=== PATIENT | female | born 1985 | race Caucasian/White ===

== ENCOUNTER → 2019-10-05 11:09 | Outpatient (BNVA) | payer MEDICAID, SELFPAY | PROVIDERS: Visit Provider Nurse Practitioner Family | DX: I10 Essential (primary) hypertension (principal); E55.9 Vitamin D deficiency, unspecified; F32.9 Major depressive disorder, single episode, unspecified; F32.1 Major depressive disorder, single episode, moderate; F41.9 Anxiety disorder, unspecified; Z79.899 Other long term (current) drug therapy | CPT/HCPCS: 80053; 80061; 81001; 82306; 83036; 84443; 85025 ==

== ENCOUNTER 2019-12-17 19:29 | Emergency (ER) | payer MEDICAID, SELFPAY ==
[2019-12-17 19:37] VITALS: BP 175/108; PULSE 106; RESP 17; TEMP 36.7; O2SAT 99; BMI 37.2
--- NOTE | 2019-12-17 19:54 | ED_ITS ---
HPI - General Adult General: Chief complaint: General Medical Stated complaint: high bp Time Seen by Provider: 12/17/19 19:36 History of Present Illness: HPI narrative: Patient is a 34-year-old female comes to the ED with elevated blood pressure, left-sided facial numbness/tingling and chest heaviness. Past medical history of hypertension and anxiety. Patient says this morning she woke up with some left-sided facial numbness . She went to [facility] urgent care and was diagnosed with Turner's palsy and put on a prescription of prednisone. No head CT was performed at [facility]. She states she is here in the ED now because she has had some elevated blood pressures at home and chest heaviness. Chest heaviness just started while at rest. She does also endorse some tingling to both right and left hands. She does endorse feeling anxious and noticed that she started getting more worried about her facial numbness anxiety increased and chest heaviness started. Associated symptoms: Reports chest pain (chest heaviness); Deny dyspnea, headache(s), nausea, rash, palpitations or vomiting Review of Systems Const: Denies: fever(s), chills or fatigue Eyes: Denies: change in vision or eye discomfort ENMT: Denies: throat pain, odynophagia, nasal discharge or nasal congestion Card: Reports: chest pain (chest heaviness); Denies: palpitations, edema, swelling of feet/ankles, dyspnea on exertion or orthopnea Resp: Denies: dyspnea, productive cough or non-productive cough GI: Denies: abdominal pain, nausea, vomiting, diarrhea, constipation or hematochezia : Denies: flank pain, dysuria or hematuria Musc: Denies: neck pain, back pain or extremity swelling Skin/Breast: Denies: rash or new lesions Neuro: Reports: sensory changes (numbness left side of face); Denies: headache(s), numbness in extremities or weakness in extremities Psych: Reports: anxiety PFSH ED PFSH: Medical History Anxiety Hypertension Otitis media Sleep disorder Vitamin D deficiency Surgical History S/P appendectomy S/P times 2 S/P cholecystectomy S/P tonsillectomy and adenoidectomy Female Reproductive History: Date of last menstrual period: 12/17/19 Physical Exam Const: COMMON NORMALS: no acute distress, patient oriented x3 and alert GENERAL APPEARANCE: cooperative, comfortable and anxious HENMT: COMMON NORMALS: normocephalic HEAD & SCALP: normocephalic MOUTH: Normal oral and palatal mucosa present THROAT: posterior oropharynx normal and uvula midline Eye: COMMON NORMALS: Equal, round and reactive pupils present, EOMs intact bilaterally and conjunctivae normal CONJUNCTIVA: Yes conjunctivae normal PUPIL: Yes Equal, round and reactive pupils present Neck/C-Spine: COMMON NORMALS: supple GENERAL: Yes normal visual inspection Resp: COMMON NORMALS: normal respiratory effort, No retractions, No use of accessory muscles and clear to auscultation bilaterally AUSCULTATION: clear to auscultation bilaterally Cardio: COMMON NORMALS: regular rate, regular rhythm, S1 normal heart sound present, S2 normal heart sound present, No gallops present (Cardio), No clicks present (Cardio), No murmurs present (Cardio) and Peripheral pulses 2+ throughout RATE: regular rate RHYTHM: regular rhythm HEART SOUNDS: S1 normal heart sound present and S2 normal heart sound present PERIPHERAL PULSES: Peripheral pulses 2+ throughout GI: COMMON NORMALS: Normal to inspection, nondistended, normoactive bowel sounds present, Soft to palpation, non-tender and no masses PALPATION: Yes Soft to palpation : COMMON NORMALS: Yes no CVA tenderness BLADDER/KIDNEY EXAM: Yes no CVA tenderness Back/Pelvis: COMMON NORMALS: no CVA tenderness Extremity: COMMON NORMALS: normal to inspection and no pedal edema Neuro: COMMON NORMALS: patient oriented x3, moves all extremities and no focal motor deficits SENSORIUM/ORIENTATION: Yes alert CRANIAL NERVES: Yes CN normal except as noted and Yes CN V (trigeminal) CN V laterality: left CN V left: all branch sensations abnormal (change in sensation with soft touch) COORDINATION/BALANCE: [id number] test normal SENSORY EXAM: Yes extremities (intact) MOTOR EXAM: 5/5 motor strength present throughout COORDINATION: [id number] test normal Psych: MOOD & AFFECT: Yes anxious Skin: COMMON NORMALS: no rashes or lesions noted GENERAL SKIN EXAM: no rashes or lesions noted and dry skin Course Vital Signs: Vital signs: Vital Signs Temperature 98.0 F 08/02/20 19:37 Pulse Rate 81 12/17/19 21:38 Respiratory Rate 16 12/17/19 21:38 Blood Pressure 149/99 12/17/19 21:38 Pulse Oximetry 97 12/17/19 21:38 MDM - General Adult MDM Narrative: Medical decision making narrative: Patient is a 34-year-old female who comes to the ED with left sided facial numbness elevated blood pressure and chest heaviness. Patient has a past medical history of anxiety and hypertension. Patient was seen at [facility] earlier today after waking up with facial numbness and diagnosed with Turner's palsy and given a prescription for prednisone. No head CT was performed there at [facility]. Neuro exam was normal except for change in sensation to soft touch on the left side of face. The rest of the physical exam was normal and unremarkable. CBC, CMP and UA were unremarkable. EKG showed normal sinus rhythm with negative troponin. hCG negative. Chest x-ray showed no acute findings pending final radiology report. CT of the head showed no acute findings ruling out stroke. Patient's chest heaviness and blood pressure improved while here on the unit after getting dose of Ativan. Patient was diagnosed with acute anxiety and hypertensive urgency. Patient told to continue taking prednisone to treat Turner's palsy. return to ED precautions given. Follow-up with PCP in 5 days for reevaluation. Patient understood and agreed with plan. Lab Data: Attestation: I reviewed the patient's lab results. Labs: Lab Results 12/17/19 12/17/19 12/17/19 Range/Units 20:00 20:00 20:00 WBC 8.4 (4.0-10.0) 10^3/ uL RBC 4.82 (4.1-5.3) 10^6/u L Hgb 14.5 (11.5-15.3) g/dL Hct 44.6 (37.0-47.0) % MCV 92.5 (81-99) fL MCH 30.1 (28.0-34.0) pg MCHC 32.5 (30.0-36.0) g/dL RDW 12.2 (12.1-15.1) % Plt Count 327 (130-400) 10^3/c mm MPV 10.7 H (7.4-10.4) fL Neut % (Auto) 85.3 % Lymph % (Auto) 12.2 % [place] % (Auto) 2.0 % Eos % (Auto) 0.1 % Baso % (Auto) 0.2 % Neut # (Auto) 7.16 (1.8-7.7) 10^3/u L Lymph # (Auto) 1.0 (0.8-4.8) 10^3/u L [place] # (Auto) 0.2 (0.2-0.9) 10^3/u L Eos # (Auto) 0.0 (0.0-0.8) 10^3/u L Baso # (Auto) 0.0 (0.0-0.1) 10^3/u L Nucleated RBC % (a uto) 0 % Nucleated RBCs # 0.0 /100WBC Sodium 139 (136-145) mmol/L Potassium 4.2 (3.5-5.1) mmol/L Chloride 106 (98-107) mmol/L Carbon Dioxide 22 (22-29) mmol/L Anion Gap 15.2 (5-19) BUN 10 (6-20) mg/dL Creatinine 0.7 (0.5-0.9) mg/dL GFR Calculation 96.4 (90-130) mL/min Glucose 160 H (65-115) mg/dL Calculated Osmolal ity 287 (285-295) mOsm/k g Calcium 9.0 (8.5-10.5) mg/dL Total Bilirubin 0.2 (0.15-1.2) mg/dL AST 27 (0-32) U/L ALT 35 H (0-33) U/L Alkaline Phosphata se 74 (35-105) IU/L Troponin T Baselin e 6 (0-10) ng/L Total Protein 7.3 (6.6-8.7) g/dL Albumin 4.4 (3.5-5.2) g/dL Globulin 2.9 (1.3-4.6) g/dL HCG, Qual (Negative) Urine Color (Yellow) Urine Appearance (CLEAR) Urine pH (5-7) Ur Specific Gravit y (1.005-1.030) Urine Protein (Negative) Urine Glucose (UA) (Normal) Urine Ketones (Negative) Urine Blood (Negative) Urine Nitrate (Negative) Urine Bilirubin (NEGATIVE) Prot Sulfosalicyli c Acd (Negative) Urine Urobilinogen (Negative) mg/dL Ur Leukocyte Rae ase (Negative) Urine RBC (0-2) /hpf Urine WBC (0-5) /hpf Ur Squamous Epith Cells (0-5) Amorphous Sediment Urine Bacteria (NONE) Urine Mucus 12/17/19 12/17/19 Range/Units 20:00 20:08 WBC (4.0-10.0) 10^3/ uL RBC (4.1-5.3) 10^6/u L Hgb (11.5-15.3) g/dL Hct (37.0-47.0) % MCV (81-99) fL MCH (28.0-34.0) pg MCHC (30.0-36.0) g/dL RDW (12.1-15.1) % Plt Count (130-400) 10^3/c mm MPV (7.4-10.4) fL Neut % (Auto) % Lymph % (Auto) % [place] % (Auto) % Eos % (Auto) % Baso % (Auto) % Neut # (Auto) (1.8-7.7) 10^3/u L Lymph # (Auto) (0.8-4.8) 10^3/u L [place] # (Auto) (0.2-0.9) 10^3/u L Eos # (Auto) (0.0-0.8) 10^3/u L Baso # (Auto) (0.0-0.1) 10^3/u L Nucleated RBC % (a uto) % Nucleated RBCs # /100WBC Sodium (136-145) mmol/L Potassium (3.5-5.1) mmol/L Chloride (98-107) mmol/L Carbon Dioxide (22-29) mmol/L Anion Gap (5-19) BUN (6-20) mg/dL Creatinine (0.5-0.9) mg/dL GFR Calculation (90-130) mL/min Glucose (65-115) mg/dL Calculated Osmolal ity (285-295) mOsm/k g Calcium (8.5-10.5) mg/dL Total Bilirubin (0.15-1.2) mg/dL AST (0-32) U/L ALT (0-33) U/L Alkaline Phosphata se (35-105) IU/L Troponin T Baselin e (0-10) ng/L Total Protein (6.6-8.7) g/dL Albumin (3.5-5.2) g/dL Globulin (1.3-4.6) g/dL HCG, Qual Negative (Negative) Urine Color Yellow (Yellow) Urine Appearance Sl hazy (CLEAR) Urine pH 8 H (5-7) Ur Specific Gravit y 1.010 (1.005-1.030) Urine Protein Neg (Negative) Urine Glucose (UA) 4+ H (Normal) Urine Ketones Negative (Negative) Urine Blood Neg (Negative) Urine Nitrate Negative (Negative) Urine Bilirubin Neg (NEGATIVE) Prot Sulfosalicyli c Acd Negative (Negative) Urine Urobilinogen Norm (Negative) mg/dL Ur Leukocyte Rae ase Negative (Negative) Urine RBC Rare (0-2) /hpf Urine WBC 0-4 H (0-5) /hpf Ur Squamous Epith Cells 0-4 H (0-5) Amorphous Sediment 2+ Urine Bacteria Trace (NONE) Urine Mucus Trace Imaging Data^: CT Head: Attestation: I personally reviewed and interpreted this imaging study as follows: Radiologist's impression: [place] [address] CT Scan Report Signed Patient: Kanwal Booth Unit #: [id number] : 1985 Acct#:OV [id number] Age/Sex: 34 / F ADM Date: 12/17/19 Loc: ER Room/Bed: Attending Dr: Ordering Provider/Ordering MD: Can Spears Date of Service: 12/17/19 Procedure(s): CT head wo con* [id number] Accession Number(s): [id number] Report Number: [id number] PROCEDURE INFORMATION: Exam: CT Head Without Contrast Exam date and time: 12/17/2019 8:12 PM Age: 34 years old Clinical indication: Numbness / parasthesia; Left; Patient HX: L facial numbness and uncontrolled HTN; Additional info: Left side face numbness TECHNIQUE: Imaging protocol: Computed tomography of the head without contrast. Radiation optimization: All CT scans at this facility use at least one of these dose optimization techniques: automated exposure control; mA and/or kV adjustment per patient size (includes targeted exams where dose is matched to clinical indication); or iterative reconstruction. COMPARISON: No relevant prior studies available. RADIATION DOSE METRICS: Total DLP (mGy-cm): 869.65 FINDINGS: The ventricles, sulci and basilar cisterns appear normal for the patient's stated age. There is no evidence of mass, hemorrhage or infarct. No extra-axial fluid collections are identified. There is no midline shift. There is no evidence of fracture. The visualized paranasal sinuses are well-aerated. CT/CT head wo con* [id number] IMPRESSION: No evidence for acute infarct, mass or hemorrhage. Radiation Dose CTDIVOL = (mGy): DLP = 869.65 (mGy-cm) Dictated By: Zacarias Lema MD Signed By: Zacarias Lema MD Signed Date/Time: 12/17/192030 DD/ 29 CXR: Attestation: I personally reviewed and interpreted this imaging study as follows: My impression: Chest x-ray showed no acute findings. Pending final radiology report. EKG Data^: EKG 1: Attestation: I personally reviewed and interpreted this EKG as follows: EKG interpretation date: 12/17/19 Interpretation: Normal sinus rhythm, 96 bpm, no ST segment elevation or depression seen, P waves present. Computer generated interpretation: Head CT 12/17/19 19:55 IMPRESSION: No evidence for acute infarct, mass or hemorrhage. Radiation Dose CTDIVOL = (mGy): DLP = 869.65 (mGy-cm) Discharge Plan Discharge Patient Disposition: Home Clinical Impression: Hypertensive urgency, Acute anxiety, Turner's palsy Condition: Stable Prescriptions: No Action amlodipine 5 mg tablet 5 mg PO DAILY 30 Days Qty: 30 RF: 2 paroxetine HCl [Paxil] 20 mg tablet 20 mg PO DAILY 30 Days Qty: 30 RF: 0 alprazolam 0.5 mg tablet 0.5 mg PO BID 30 Days Qty: 60 RF: 0 azithromycin 250 mg tablet See Rx Instructions PO .COMPLEX Qty: 6 RF: 0 Ciprodex 0.3-0.1 % drops,suspension 4 drop EAR-BOTH BID 7 Days Qty: 7.5 RF: 0 lisinopril 20 mg tablet 20 mg PO DAILY 30 Days Qty: 30 RF: 5 Discharge Orders: Discharge Order (Routine); Ordered 12/17/19 Ordered By: Can Spears Referrals: CTAIE Lozano, TOBI [Primary Care Provider] - Discharge Diet: Regular Discharge Activity: Increase activity as tolerated Patient Instructions: Hypertensive Crisis (ED), Anxiety (ED) Activity Restrictions/Additional Instructions: Follow-up with medical provider as directed in 5 days for reevaluation. Take all home medications as prescribed. Continue taking previously prescribed prednisone to help with Turner's palsy. return to the ER or your medical provider if condition worsens. Please read and understand discharge instructions. If any questions, please ask. Discharge Date/Time: 12/17/19 21:45 Coding Level of Care Code ED Separating Machine Operator for Hernandez Nelson Exam Comprehensive
[2019-12-17 19:55] VITALS: BP 180/111; PULSE 92; RESP 16; O2SAT 97
--- NOTE | 2019-12-17 19:55 | XR_ITS ---
WS: [id number] PORTABLE CHEST HISTORY: chest pain COMPARISON: None available. Lungs are clear and well expanded. No pleural effusion or pneumothorax. Cardiac size: Normal. Mediastinum/Aorta: Normal mediastinum. No osseous abnormality seen. XR/XR chest 1V portable [id number] IMPRESSION: Unremarkable portable chest.
--- NOTE | 2019-12-17 19:55 | ECG_ITS ---
[facility] Test Date: 2019-12-17 Pat Name: Kanwal Booth Department: Room: Gender: Female Consulting Group Analyst: : 1985 Requested By: Can Spears Order Number: [id number] Clark MD: Mayra Jimenez M.D. Measurements Intervals [place] Rate: 96 P: 28 MD: 157 QRS: -16 QRSD: 95 T: 4 QT: 341 QTc: 432 Interpretive Statements SINUS RHYTHM POSSIBLE LEFT ATRIAL ENLARGEMENT [-0.1mV P WAVE IN V1/V2] POSSIBLE LEFT VENTRICULAR HYPERTROPHY [VOLTAGE CRITERIA PLUS LAE OR QRS WIDENING] POSSIBLE ANTERIOR MYOCARDIAL INFARCTION , OF INDETERMINATE AGE [30 ms Q WAVE IN V3/V4, OR R < 0.2 mV IN V4] No previous ECG available for comparison Electronically Signed On 12-18-2019 9:35:33 CDT by Mayra Jimenez M.D. [id number]
[2019-12-17 20:10] LABS: Basophils % 0.2 %; Eosinophils % 0.1 %; Hematocrit 44.6 % (37.0-47.0); Hemoglobin 14.5 g/dL (11.5-15.3); Lymphocytes % 12.2 %; Mean Corpuscular HGB Conc 32.5 g/dL (30.0-36.0); Mean Corpuscular Hemoglobin 30.1 pg (28.0-34.0); Mean Corpuscular Volume 92.5 fL (81-99); Mean Platelet Volume 10.7 fL (7.4-10.4); Monocytes # 0.2 10^3/uL (0.2-0.9); Neutrophils # 7.16 10^3/uL (1.8-7.7); Neutrophils % 85.3 %; Nucleated Red Blood Cells % 0 %; Platelet Count 327 10^3/cmm (130-400); Red Blood Count 4.82 10^6/uL (4.1-5.3); Red Cell Distribution Width 12.2 % (12.1-15.1); White Blood Count 8.4 10^3/uL (4.0-10.0)
[2019-12-17 20:27] LABS: HCG, Serum Qual Negative (Negative)
[2019-12-17 20:29] LABS: Add Urine Microscopic? YES; Bilirubin Urine Neg (NEGATIVE); Blood Urine Neg (Negative); Glucose Urine UA 4+ (Normal); Ketones Urine Negative (Negative); Leukocyte Esterase Urine Negative (Negative); Nitrate Urine Negative (Negative); Protein Urine Neg (Negative); Sulfosalicylic Acid Urine Negative (Negative); Urine Appearance SL Hazy (CLEAR); Urine Color Yellow (Yellow); Urobilinogen Urine Norm (Negative); pH Urine 8 (5-7)
[2019-12-17 20:30] LABS: Amorphous Sediment Urine 2+; Bacteria Urine TRACE; Mucus Urine TRACE; RBC Urine RARE /hpf (0-2); Squamous Epithelial Cell Urine 0-4 (0-5); WBC Urine 0-4 /hpf (0-5)
[2019-12-17 20:31] LABS: Add Urine Culture? No
[2019-12-17 20:34] LABS: Alanine Aminotransferase 35 U/L (0-33); Albumin Level 4.4 g/dL (3.5-5.2); Alkaline Phosphatase 74 IU/L (35-105); Anion Gap 15.2 (5-19); Aspartate Amino Transferase 27 U/L (0-32); Blood Urea Nitrogen 10 mg/dL (6-20); Carbon Dioxide 22 mmol/L (22-29); Chloride 106 mmol/L (98-107); Creatinine Clr Calc Pharmacy 125.4922; Globulin 2.9 g/dL (1.3-4.6); Glomerular Filtration Rate 96.4 mL/min (90-130); Glucose 160 mg/dL (65-115); Osmolality Calculated 287 mOsm/kg (285-295); Potassium 4.2 mmol/L (3.5-5.1); Sodium 139 mmol/L (136-145); Total Bilirubin 0.2 mg/dL (0.15-1.2); Total Protein 7.3 g/dL (6.6-8.7); Troponin(5th) Baseline 6 ng/L (0-10)
[2019-12-17] MEDS: LORazepam 2 mg/mL INJ 1 mL 1 MG IVP (20:56)
[2019-12-17 20:59] VITALS: BP 165/99; PULSE 79; RESP 16; O2SAT 97
[2019-12-17 21:38] VITALS: BP 149/99; PULSE 81; RESP 16; O2SAT 97
== END 2019-12-17 21:45 | disposition home or self-care (01) ==
PROVIDERS: Emergency Provider Physician Assistant; PCP Nurse Practitioner Family
DX: I16.0 Hypertensive urgency (principal); F41.9 Anxiety disorder, unspecified; G51.0 Bell's palsy; I10 Essential (primary) hypertension
CPT/HCPCS: 12345; 70450; 71045; 80053; 81001; 81003; 84484; 84703; 85025; 93005; 96374; 99283; 99284; J2060

== ENCOUNTER → 2019-12-22 11:36 | Outpatient (BNVA) | payer MEDICAID, SELFPAY | PROVIDERS: PCP Nurse Practitioner Family; Visit Provider Nurse Practitioner Family | DX: I10 Essential (primary) hypertension (principal); F41.9 Anxiety disorder, unspecified; F32.9 Major depressive disorder, single episode, unspecified; G51.0 Bell's palsy | CPT/HCPCS: 80053; 81003; 83036; 84146; 84443 ==

== ENCOUNTER → 2020-10-03 08:45 | Outpatient (BNVA) | payer MEDICAID, SELFPAY | PROVIDERS: PCP Nurse Practitioner Family; Visit Provider Social Worker Clinical | DX: F43.12 Post-traumatic stress disorder, chronic (principal); Z63.4 Disappearance and death of family member | CPT/HCPCS: 90834 ==

== ENCOUNTER → 2020-10-10 09:25 | Outpatient (BNVA) | payer MEDICAID, SELFPAY | PROVIDERS: PCP Nurse Practitioner Family; Visit Provider Psychiatry & Neurology Psychiatry | DX: F41.9 Anxiety disorder, unspecified (principal); F32.9 Major depressive disorder, single episode, unspecified; F43.10 Post-traumatic stress disorder, unspecified; Z63.4 Disappearance and death of family member | CPT/HCPCS: 90792 ==

== ENCOUNTER → 2020-10-17 08:57 | Outpatient (BNVA) | payer MEDICAID, SELFPAY | PROVIDERS: PCP Nurse Practitioner Family; Visit Provider Social Worker Clinical | DX: F43.12 Post-traumatic stress disorder, chronic (principal); Z63.4 Disappearance and death of family member | CPT/HCPCS: 90834 ==

== ENCOUNTER → 2020-10-31 09:41 | Outpatient (BNVA) | payer MEDICAID, SELFPAY | PROVIDERS: PCP Nurse Practitioner Family; Visit Provider Social Worker Clinical | DX: Z63.4 Disappearance and death of family member (principal); F43.12 Post-traumatic stress disorder, chronic | CPT/HCPCS: 90834 ==

== ENCOUNTER → 2020-11-14 08:36 | Outpatient (BNVA) | payer OTHER, SELFPAY | PROVIDERS: PCP Nurse Practitioner Family; Visit Provider Social Worker | DX: Z63.4 Disappearance and death of family member (principal); F43.12 Post-traumatic stress disorder, chronic | CPT/HCPCS: 90834 ==

== ENCOUNTER → 2020-12-12 07:49 | Outpatient (BNVA) | payer OTHER, SELFPAY | PROVIDERS: PCP Nurse Practitioner Family; Visit Provider Psychiatry & Neurology Psychiatry | DX: F41.9 Anxiety disorder, unspecified (principal); F32.9 Major depressive disorder, single episode, unspecified; F43.10 Post-traumatic stress disorder, unspecified | CPT/HCPCS: 99214 ==

== ENCOUNTER → 2020-12-19 07:43 | Outpatient (BNVA) | payer OTHER, MEDICAID, SELFPAY | PROVIDERS: PCP Nurse Practitioner Family; Visit Provider Social Worker | DX: F43.12 Post-traumatic stress disorder, chronic (principal) | CPT/HCPCS: 90834 ==

== ENCOUNTER 2020-12-20 13:03 | Emergency (ER) | payer MEDICAID, SELFPAY ==
[2020-12-20 13:28] VITALS: BP 157/107; PULSE 74; RESP 18; TEMP 36.7; O2SAT 99; BMI 35.4
[2020-12-20 15:04] VITALS: O2SAT 100
[2020-12-20 15:26] VITALS: BP 197/117; PULSE 71; RESP 18; O2SAT 100
[2020-12-20 15:44] LABS: Basophils # 0.1 10^3/uL (0.0-0.1); Basophils % 0.3 %; Eosinophils # 0.3 10^3/uL (0.0-0.8); Eosinophils % 1.8 %; Hemoglobin 13.9 g/dL (11.5-15.3); Lymphocytes # 3.1 10^3/uL (0.8-4.8); Lymphocytes % 19.5 %; Mean Corpuscular HGB Conc 33.1 g/dL (30.0-36.0); Mean Corpuscular Volume 96.8 fL (81-99); Monocytes % 6.4 %; Neutrophils # 11.43 10^3/uL (1.8-7.7); Neutrophils % 71.5 %; Nucleated Red Blood Cells % 0 %; Platelet Count 350 10^3/cmm (130-400); Red Blood Count 4.34 10^6/uL (4.1-5.3); Red Cell Distribution Width 13.1 % (12.1-15.1)
[2020-12-20 15:55] LABS: Lactate (Lactic Acid level) 0.9 mmol/L (0.5-2.2)
--- NOTE | 2020-12-20 16:01 | CTR_ITS ---
PROCEDURE INFORMATION: Exam: CT Neck With Contrast Exam date and time: 12/20/2020 4:01 PM Age: 35 years old Clinical indication: Mass, lump, or swelling in neck; Left; Patient HX: C/O L sided submandibular swellimg and pain; Additional info: Neck swelling TECHNIQUE: Imaging protocol: Computed tomography images of the neck with contrast. Radiation optimization: All CT scans at this facility use at least one of these dose optimization techniques: automated exposure control; mA and/or kV adjustment per patient size (includes targeted exams where dose is matched to clinical indication); or iterative reconstruction. Contrast material: OMNI 300; Contrast volume: 95 ml; Contrast route: INTRAVENOUS (IV); COMPARISON: CT head wo con* [id number] 12/17/2019 8:11 PM RADIATION DOSE METRICS: Total DLP (mGy-cm): 510.53 FINDINGS: Nasopharynx: Unremarkable. Dental: There is dental caries involving multiple upper and lower molar teeth on the left. There appears to be periapical abscess involving the posterior left lower molar tooth in this may be the cause for the abnormal findings on this exam. Correlation with physical examination and dental examination is suggested. Oropharynx: Unremarkable. No significant tonsillar enlargement. Hypopharynx: Unremarkable. Larynx: Unremarkable. Normal epiglottis. Retropharyngeal space: Unremarkable. Submandibular/Parotid glands: There is some swelling in the left sublingual space and submandibular space possibly also involving the anterior aspect of the left submandibular gland. There is also some edema in the left buccal space with thickening of the left platysma muscle and some edema in the subcutaneous fat along the left side of the face and mild thickening of the skin on the left side of the face. There are mildly enlarged submandibular lymph nodes on the left. Thyroid: Normal. No enlarged or calcified nodules. Lymph nodes: See Submandibular/Parotid glands finding. Trachea: Visualized trachea is unremarkable. Lungs: Unremarkable as visualized. Bones/joints: Unremarkable. No acute fracture. Soft tissues: See Submandibular/Parotid glands finding. CT/CT neck w con* [id number] IMPRESSION: 1. Dental and periodontal disease including periapical abscess involving posterior left molar tooth. 2. There is swelling and edema in the left sublingual space without definite abscess. Dental etiology suspected 3. Left facial cellulitis as described also involving the left pupil space. 4. No drainable abscess is identified.. Radiation Dose CTDIVOL = (mGy): DLP = 510.53 (mGy-cm)
--- NOTE | 2020-12-20 16:05 | ED_ITS ---
HPI - General Adult General: Chief complaint: General Medical Stated complaint: FACIAL/THROAT/EYE SWELLING:CAT SCRATCH FEVER Time Seen by Provider: 12/20/20 15:07 History of Present Illness: HPI narrative: 35-year-old female presents to the emergency room with complaint of swelling under the jaw and on the left side of the face. Is been going on for the last several days. She was started on some antibiotics for presumptive ear infection and cat scratch fever she had multiple cat scratches on her upper extremities she has no erythema or lymphangitic spread from those sites no axillary lymph nodes. She not noticed any fever sweats or chills. Is not gotten better actually worsened since being started on the Zithromax. Onset (ago): day(s) Radiation: non-radiation Severity: mild Quality: aching Pain Consistency: constant Relieving factors: none Exacerbating factors: none Associated symptoms: Reports decreased appetite, malaise and nausea; Deny chest pain, confusion, cough, diaphoresis, dyspnea, fevers/chills, headache(s), rash, palpitations, seizures, short of breath, syncope, vomiting or weakness Treatments prior to arrival: none Review of Systems Const: Reports: malaise; Denies: diaphoresis ENMT: Denies: throat pain, ear or mastoid pain, nasal discharge or nasal congestion Card: Denies: chest pain, palpitations or syncope Resp: Denies: dyspnea GI: Reports: nausea; Denies: vomiting : Denies: flank pain, difficulty voiding, dysuria, urinary frequency or urinary urgency Skin/Breast: Denies: rash Neuro: Denies: headache(s) or confusion PFS ED PFSH: Medical History Anxiety Cat scratch fever Depression Herpes zoster Hypertension Otitis media PTSD (post-traumatic stress disorder) Sleep disorder Vitamin D deficiency Surgical History S/P appendectomy S/P times 2 S/P cholecystectomy S/P tonsillectomy and adenoidectomy Social History Smoking and tobacco status: current every day smoker cigarettes Packs smoked per day: 0.5 Years cigarettes smoked: 20 Quit status (tobacco): has tried quititng Number of times tried to quit tobacco: 1 Second hand smoke exposure: Yes Female Reproductive History: Date of last menstrual period: 12/17/19 Physical Exam Const: COMMON NORMALS: no acute distress GENERAL APPEARANCE: cooperative and comfortable ORIENTATION/CONSCIOUSNESS: Yes awake, Yes oriented to person, Yes oriented to place and Yes oriented to time HENMT: COMMON NORMALS: atraumatic, hearing grossly normal bilaterally, external ears normal, EAC's normal, TM's normal bilaterally, Normal nasal mucous membranes and turbinates present, moist oral mucous membranes and oropharynx normal HEAD & SCALP: atraumatic NOSE: Normal nasal mucous membranes and turbinates present EXTERNAL EAR: Yes external ears normal EXTERNAL AUDITORY CANAL: EAC's normal TYMPANIC MEMBRANE: TM's normal bilaterally Eye: COMMON NORMALS: Equal, round and reactive pupils present, EOMs intact bilaterally, conjunctivae normal and no scleral icterus CONJUNCTIVA: Yes conjunctivae normal PUPIL: Yes Equal, round and reactive pupils present Neck/C-Spine: OTHER: Large amount of nondiffuse swelling left mandible extending into the submandibular space in the lateral part of the left neck. There is no stridor no palpable lymph nodes no abscess. Resp: COMMON NORMALS: normal respiratory effort, No retractions, No use of accessory muscles and clear to auscultation bilaterally AUSCULTATION: clear to auscultation bilaterally Cardio: COMMON NORMALS: regular rate, regular rhythm and No murmurs present (Cardio) RATE: regular rate RHYTHM: regular rhythm GI: COMMON NORMALS: Soft to palpation and No hepatosplenomegaly present AUSCULTATION: Yes normoactive bowel sounds PALPATION: Yes Soft to palpation, No Tenderness to palpation present (GI), No Guarding due to palpation present (GI) and Yes No hepatosplenomegaly present Extremity: COMMON NORMALS: normal to inspection, capillary refill normal, no clubbing, cyanosis or edema, no calf tenderness and no pedal edema Neuro: SENSORIUM/ORIENTATION: Yes oriented to person, Yes oriented to place and Yes oriented to time Skin: COMMON NORMALS: no rashes or lesions noted GENERAL SKIN EXAM: no rashes or lesions noted Course Vital Signs: Vital signs: Vital Signs Temperature 98.1 F 12/20/20 13:28 Pulse Rate 71 12/20/20 15:26 Respiratory Rate 15 12/20/20 18:41 Blood Pressure 197/117 08/06/21 15:26 Pulse Oximetry 100 12/20/20 15:26 MDM - General Adult MDM Narrative: Medical decision making narrative: Dental infection with extensive soft tissue swelling however there is no evidence of abscess no evidence of airway compromise. Add doxycycline and clindamycin stop Zithromax. Recheck with primary care doctor or a dentist within the next 3 to 4 days return to emergency room immediately with any difficulty breathing or worsening of symptoms. Lab Data: Labs: Lab Results 12/20/20 12/20/20 12/20/20 Range/Units 15:28 15:28 15:28 WBC 16.0 H (4.0-10.0) 10^3/ uL RBC 4.34 (4.1-5.3) 10^6/u L Hgb 13.9 (11.5-15.3) g/dL Hct 42.0 (37.0-47.0) % MCV 96.8 (81-99) fL MCH 32.0 (28.0-34.0) pg MCHC 33.1 (30.0-36.0) g/dL RDW 13.1 (12.1-15.1) % Plt Count 350 (130-400) 10^3/c mm MPV 11.0 H (7.4-10.4) fL Neut % (Auto) 71.5 % Lymph % (Auto) 19.5 % [place] % (Auto) 6.4 % Eos % (Auto) 1.8 % Baso % (Auto) 0.3 % Neut # (Auto) 11.43 H (1.8-7.7) 10^3/u L Lymph # (Auto) 3.1 (0.8-4.8) 10^3/u L [place] # (Auto) 1.0 H (0.2-0.9) 10^3/u L Eos # (Auto) 0.3 (0.0-0.8) 10^3/u L Baso # (Auto) 0.1 (0.0-0.1) 10^3/u L Nucleated RBC % (a uto) 0 % Nucleated RBCs # 0.0 /100WBC Sodium 138 (136-145) mmol/L Potassium 3.7 (3.5-5.1) mmol/L Chloride 104 (98-107) mmol/L Carbon Dioxide 24 (22-29) mmol/L Anion Gap 13.7 (5-19) BUN 13 (6-20) mg/dL Creatinine 0.6 (0.5-0.9) mg/dL GFR Calculation 114.4 (90-130) mL/min Glucose 87 (65-115) mg/dL Calculated Osmolal ity 285 (285-295) mOsm/k g Lactate 0.9 (0.5-2.2) mmol/L Calcium 8.6 (8.5-10.5) mg/dL Total Bilirubin 0.2 (0.15-1.2) mg/dL AST 13 (0-32) U/L ALT 20 (0-33) U/L Alkaline Phosphata se 66 (35-105) IU/L Total Protein 6.8 (6.6-8.7) g/dL Albumin 3.8 (3.5-5.2) g/dL Globulin 3.0 (1.3-4.6) g/dL Discharge Plan Discharge Patient Disposition: Home Clinical Impression: Dental abscess Condition: Stable Prescriptions: New clindamycin HCl 300 mg capsule 300 mg PO QID 10 Days Qty: 40 RF: 0 hydrocodone-acetaminophen 5-325 mg tablet 1 tab PO Q6H PRN (Reason: pain) Qty: 15 RF: 0 Zofran 4 mg tablet 4 mg PO Q6H PRN (Reason: nausea and vomiting) Qty: 20 RF: 0 Medrol (Ryan) 4 mg tablets,dose pack See Rx Instructions .ROUTE .COMPLEX Qty: 21 RF: 0 doxycycline hyclate 100 mg tablet 100 mg PO BID 10 Days Qty: 20 RF: 0 Discontinued clindamycin HCl 300 mg capsule 300 mg PO QID 10 Days Qty: 40 RF: 0 No Action azithromycin 250 mg tablet See Rx Instructions PO .COMPLEX Qty: 6 RF: 0 paroxetine HCl 30 mg tablet 60 mg PO DAILY RF: 0 clonidine HCl 0.1 mg tablet 0.1 mg PO BEDTIME RF: 0 alprazolam 0.5 mg tablet 0.5 mg PO BID PRN (Reason: Anxiety) RF: 0 Discharge Orders: Discharge ED (Routine); Ordered 12/20/20 Ordered By: Calin Lea Referrals: CATIE Lozano, [employer] NETWORK MANAGER [Primary Care Provider] - Patient Instructions: Opioid Safety Coding Level of Care Code ED Newspaper Inserter for Chg Fwd Exam Comprehensive
[2020-12-20 16:08] LABS: Alanine Aminotransferase 20 U/L (0-33); Albumin Level 3.8 g/dL (3.5-5.2); Alkaline Phosphatase 66 IU/L (35-105); Anion Gap 13.7 (5-19); Aspartate Amino Transferase 13 U/L (0-32); Blood Urea Nitrogen 13 mg/dL (6-20); Calcium 8.6 mg/dL (8.5-10.5); Carbon Dioxide 24 mmol/L (22-29); Chloride 104 mmol/L (98-107); Glomerular Filtration Rate 114.4 mL/min (90-130); Glucose 87 mg/dL (65-115); Osmolality Calculated 285 mOsm/kg (285-295); Potassium 3.7 mmol/L (3.5-5.1); Sodium 138 mmol/L (136-145); Total Bilirubin 0.2 mg/dL (0.15-1.2); Total Protein 6.8 g/dL (6.6-8.7)
[2020-12-20] MEDS: iohexol 300 mg/mL 100 mL Btl IV (17:48)
[2020-12-20] MEDS: ondansetron 2 mg/ML SDV 2 mL 4 MG IVP (17:50)
[2020-12-20] MEDS: morphine 4 mg/mL SDV 1 mL IVP (17:51)
[2020-12-20 18:00] VITALS: RESP 15
[2020-12-20 18:41] VITALS: RESP 15
[2020-12-20] MEDS: dexamethasone 10 mg/mL INJ IVP (18:41)
== END 2020-12-20 18:42 | disposition home or self-care (01) ==
PROVIDERS: Nurse Practitioner Family; Emergency Provider Family Medicine; PCP Nurse Practitioner Family
DX: K04.7 Periapical abscess without sinus (principal); I10 Essential (primary) hypertension; F17.210 Nicotine dependence, cigarettes, uncomplicated
CPT/HCPCS: 70491; 80053; 83605; 85025; 87040; 96374; 96375; 99284; J1100; J2270; J2405; Q9967

== ENCOUNTER → 2021-01-10 07:53 | Outpatient (BNVA) | payer OTHER, MEDICAID, SELFPAY | PROVIDERS: PCP Nurse Practitioner Family; Visit Provider Social Worker | DX: F43.10 Post-traumatic stress disorder, unspecified (principal); Z63.4 Disappearance and death of family member | CPT/HCPCS: 90834 ==

== ENCOUNTER → 2021-02-28 07:53 | Outpatient (BNVA) | payer OTHER, SELFPAY | PROVIDERS: PCP Nurse Practitioner Family; Visit Provider Social Worker | DX: F43.12 Post-traumatic stress disorder, chronic (principal); Z63.4 Disappearance and death of family member | CPT/HCPCS: 90834 ==

== ENCOUNTER → 2021-03-05 07:43 | Outpatient (BNVA) | payer OTHER, SELFPAY | PROVIDERS: PCP Nurse Practitioner Family; Visit Provider Social Worker | DX: F43.12 Post-traumatic stress disorder, chronic (principal); Z63.4 Disappearance and death of family member | CPT/HCPCS: 90834 ==

== ENCOUNTER → 2021-04-04 09:52 | Outpatient (BNVA) | payer OTHER, SELFPAY | PROVIDERS: PCP Nurse Practitioner Family; Visit Provider Psychiatry & Neurology Psychiatry | DX: F43.10 Post-traumatic stress disorder, unspecified (principal); F41.9 Anxiety disorder, unspecified; F32.9 Major depressive disorder, single episode, unspecified | CPT/HCPCS: 99214 ==

== ENCOUNTER → 2021-04-18 08:44 | Outpatient (BNVA) | payer OTHER, SELFPAY | PROVIDERS: PCP Nurse Practitioner Family; Visit Provider Social Worker | DX: F43.12 Post-traumatic stress disorder, chronic (principal); Z63.4 Disappearance and death of family member | CPT/HCPCS: 90834 ==

== ENCOUNTER → 2021-05-08 08:01 | Outpatient (BNVA) | payer OTHER, SELFPAY | PROVIDERS: PCP Nurse Practitioner Family; Visit Provider Social Worker | DX: F43.12 Post-traumatic stress disorder, chronic (principal); Z63.4 Disappearance and death of family member | CPT/HCPCS: 90834 ==

== ENCOUNTER 2021-06-02 18:24 | Emergency (ER) | payer MEDICAID, SELFPAY ==
--- NOTE | 2021-06-02 18:29 | XRR_ITS ---
PROCEDURE INFORMATION: Exam: XR Right Knee Exam date and time: 06/02/2021 6:29 PM Age: 35 years old Clinical indication: Injury or trauma; Fall; Blunt trauma; Knee; Right TECHNIQUE: Imaging protocol: XR Right knee. Views: 3 views. COMPARISON: No relevant prior studies available. FINDINGS: Bones/joints: Osseous structures are intact. Negative for fracture. Joint spaces are preserved. Soft tissues: Normal. XR/XR knee RT 3V* [id number] IMPRESSION: No acute findings.
[2021-06-02 19:07] VITALS: BP 165/111; PULSE 74; RESP 17; TEMP 36.8; O2SAT 98; BMI 33.6
--- NOTE | 2021-06-02 19:15 | W.ED.EXTPRO ---
HPI - Extremity Problem General: Chief complaint: Extremity Injury, Lower Stated complaint: Injury Rt Knee Time Seen by Provider: 06/02/21 19:15 History of Present Illness: HPI Narrative: 35-year-old female reports that yesterday her son fell landing against the lateral aspect of her right knee joint. Since then patient has had swelling and tenderness and difficulty weightbearing to the right knee. Patient appears well. Patient appears in no acute distress. Patient appears in mild to moderate pain. Review of Systems Musc: Reports: joint pain (Right knee injury) [facility] ED PFSH: Medical History (Updated 06/02/21 @ 19:27 by TOBI King) Anxiety Cat scratch fever Depression Herpes zoster Hypertension Otitis media Psychiatric care PTSD (post-traumatic stress disorder) Sleep disorder Vitamin D deficiency Surgical History S/P appendectomy S/P times 2 S/P cholecystectomy S/P tonsillectomy and adenoidectomy Social History Smoking and tobacco status: current every day smoker cigarettes Packs smoked per day: 0.5 Years cigarettes smoked: 20 Quit status (tobacco): has tried quititng Number of times tried to quit tobacco: 1 Second hand smoke exposure: Yes Female Reproductive History: Date of last menstrual period: 05/05/21 Physical Exam Const: COMMON NORMALS: healthy appearing Resp: COMMON NORMALS: normal respiratory effort Cardio: COMMON NORMALS: regular rate and regular rhythm RATE: regular rate RHYTHM: regular rhythm Extremity: RIGHT LOWER EXTREMITY: Yes knee joint Right knee: Yes inspection (Lateral suprapatellar swelling) and Yes palpation (Tenderness noted to the lateral joint line) Course Vital Signs: Vital signs: Vital Signs Temperature 98.2 F 06/02/21 19:07 Pulse Rate 74 06/02/21 19:07 Respiratory Rate 17 06/02/21 19:07 Blood Pressure 165/111 06/02/21 19:07 Pulse Oximetry 98 06/02/21 19:07 MDM - Extremity (Nontraumatic) MDM Narrative: Medical decision making narrative: 35-year-old female comes in with injury to the right knee. On exam patient has decreased range of motion of the knee due to swelling. Patient has some mild to moderate swelling noted to the suprapatellar lateral side. Tenderness is noted to the lateral joint line. Distal pulses and sensation are intact. Differential diagnosis includes but not limited to knee sprain, fracture, dislocation. X-ray noted no obvious fracture. We will treat patient for a knee sprain. Reviewed exam with patient recommended treatment with acetaminophen and diclofenac. Patient was given crutches for mobility and recommended to use an elastic bandage for comfort. Discharge Plan Discharge Patient Disposition: Home Clinical Impression: Sprain of knee Qualifiers: Encounter type: initial encounter Involved ligament of knee: unspecified ligament Laterality: right Qualified Code(s): S83.91XA - Sprain of unspecified site of right knee, initial encounter Condition: Stable Prescriptions: New diclofenac sodium 75 mg tablet,delayed release (DR/EC) 75 mg PO BID Qty: 20 RF: 0 No Action alprazolam 0.5 mg tablet 0.5 mg PO BID PRN (Reason: Anxiety) Qty: 60 RF: 3 clonidine HCl 0.1 mg tablet 0.1 mg PO BEDTIME 30 Days Qty: 30 RF: 3 paroxetine HCl 30 mg tablet 60 mg PO DAILY Qty: 60 RF: 3 azithromycin 250 mg tablet See Rx Instructions PO .COMPLEX Qty: 6 RF: 0 fluconazole [Diflucan] 150 mg tablet 150 mg PO DAILY 5 Days Qty: 5 RF: 0 hydrocodone-acetaminophen 5-325 mg tablet 1 tab PO Q6H PRN (Reason: pain) Qty: 15 RF: 0 Zofran 4 mg tablet 4 mg PO Q6H PRN (Reason: nausea and vomiting) Qty: 20 RF: 0 Medrol (Ryan) 4 mg tablets,dose pack See Rx Instructions .ROUTE .COMPLEX Qty: 21 RF: 0 Discharge Orders: Discharge ED (Routine); Ordered 06/02/21 Ordered By: Wolf Del Rosario Discharge Diet: Usual diet Discharge Activity: Increase activity as tolerated Patient Instructions: Knee Sprain (ED) Activity Restrictions/Additional Instructions: Home and rest. Activity as tolerated. Use diclofenac 1 tablet twice a day to help with pain, inflammation, and swelling. Use acetaminophen for further pain control. Drink plenty of water with medication. Follow-up with primary care in 3 days for recheck if no improvement in pain is noted. Coding Level of Care Code ED Substance Abuse Therapist for Hernandez Nelson
== END 2021-06-02 19:41 | disposition home or self-care (01) ==
PROVIDERS: Emergency Provider Nurse Practitioner Family
DX: S83.91XA Sprain of unspecified site of right knee, initial encounter (principal); I10 Essential (primary) hypertension; F17.210 Nicotine dependence, cigarettes, uncomplicated; W50.0XXA Accidental hit or strike by another person, initial encounter
CPT/HCPCS: 73562; 99283; E0114

== ENCOUNTER → 2021-06-12 07:29 | Outpatient (BNVA) | payer MEDICAID, SELFPAY | PROVIDERS: Visit Provider Psychiatry & Neurology Psychiatry | DX: F43.10 Post-traumatic stress disorder, unspecified (principal); F41.9 Anxiety disorder, unspecified; F32.9 Major depressive disorder, single episode, unspecified | CPT/HCPCS: 99213 ==

== ENCOUNTER → 2021-06-13 07:17 | Outpatient (BNVA) | payer MEDICAID, SELFPAY | PROVIDERS: Visit Provider Social Worker | DX: F43.12 Post-traumatic stress disorder, chronic (principal); Z63.4 Disappearance and death of family member | CPT/HCPCS: 90834 ==

== ENCOUNTER → 2021-07-18 09:02 | Outpatient (BNVA) | payer MEDICAID, SELFPAY | PROVIDERS: Visit Provider Social Worker | DX: F43.12 Post-traumatic stress disorder, chronic (principal); Z63.4 Disappearance and death of family member | CPT/HCPCS: 90791 ==

== ENCOUNTER → 2021-07-31 13:28 | Outpatient (BNVA) | payer OTHER, SELFPAY | PROVIDERS: Visit Provider Social Worker | DX: F43.12 Post-traumatic stress disorder, chronic (principal); Z63.4 Disappearance and death of family member | CPT/HCPCS: 90834 ==

== ENCOUNTER → 2021-08-15 07:46 | Outpatient (BNVA) | payer OTHER, SELFPAY | PROVIDERS: Visit Provider Social Worker | DX: F43.12 Post-traumatic stress disorder, chronic (principal); Z63.4 Disappearance and death of family member | CPT/HCPCS: 90837; 90834 ==

== ENCOUNTER → 2021-09-12 08:57 | Outpatient (BNVA) | payer OTHER, SELFPAY | PROVIDERS: Visit Provider Social Worker | DX: F43.12 Post-traumatic stress disorder, chronic (principal); Z63.4 Disappearance and death of family member | CPT/HCPCS: 90834 ==

== ENCOUNTER → 2021-09-25 08:35 | Outpatient (BNVA) | payer OTHER, SELFPAY | PROVIDERS: Visit Provider Social Worker | DX: F43.12 Post-traumatic stress disorder, chronic (principal); Z63.4 Disappearance and death of family member | CPT/HCPCS: 90834 ==

== ENCOUNTER → 2021-11-11 13:44 | Outpatient (BNVA) | payer OTHER, SELFPAY | PROVIDERS: Visit Provider Psychiatry & Neurology Psychiatry | DX: F41.9 Anxiety disorder, unspecified (principal); F32.9 Major depressive disorder, single episode, unspecified; F43.10 Post-traumatic stress disorder, unspecified | CPT/HCPCS: 99214 ==

== ENCOUNTER → 2022-01-15 14:22 | Outpatient (BNVA) | payer OTHER, SELFPAY | PROVIDERS: PCP Family Medicine; Visit Provider Family Medicine | DX: Z20.822 Contact with and (suspected) exposure to COVID-19 (principal); J06.9 Acute upper respiratory infection, unspecified | CPT/HCPCS: 87426 ==

== ENCOUNTER → 2022-04-16 14:58 | Outpatient (BNVA) | payer OTHER, SELFPAY | PROVIDERS: PCP Family Medicine; Visit Provider Nurse Practitioner | DX: R50.9 Fever, unspecified (principal); J06.9 Acute upper respiratory infection, unspecified; H66.90 Otitis media, unspecified, unspecified ear | CPT/HCPCS: 87400 ==

== ENCOUNTER 2022-05-18 13:30 | Emergency (ER) | payer MEDICAID, SELFPAY ==
[2022-05-18 14:17] VITALS: BP 226/150; PULSE 91; RESP 14; TEMP 36.8; O2SAT 95
--- NOTE | 2022-05-18 14:44 | XRR_ITS ---
PROCEDURE INFORMATION: Exam: XR Left Foot Exam date and time: 05/18/2022 2:58 PM Age: 36 years old Clinical indication: Injury or trauma; Other: Dropped heavy boards on foot; Blunt trauma; Left; Additional info: Trauma/injury TECHNIQUE: Imaging protocol: Radiologic exam of the Left foot. Views: 3 or more views. COMPARISON: No relevant prior studies available. FINDINGS: Bones/joints: Negative for acute bony abnormality. Soft tissues: Normal. XR/XR foot LT min 3V* [id number] IMPRESSION: No acute findings.
--- NOTE | 2022-05-18 14:44 | W.ED.LOWEXIN ---
HPI - Extremity Injury (Lower) General: Chief Complaint: Extremity Injury, Lower Stated Complaint: Left foot is in pain Time Seen by Provider: 05/18/22 14:25 Source: patient Mode of arrival: ambulatory Limitations: no limitations History of Present Illness: Patient is a 36-year-old female who presents to ED today with a complaint of a left foot injury that she sustained approximately 4 days ago after dropping a heavy load of 2x8 boards. She states she sustained an abrasion/laceration to the dorsum of her foot that has healed. She immediately was ambulatory after the event for about a day but states the pain has progressively worsened following that. MD complaint: foot injury Onset (ago): day(s) Injury: Left: foot Type of Injury: blunt Place: home Severity: moderate Relieving factors: immobilization Exacerbating factors: weight bearing Context: direct blow Associated symptoms: Reports no associated symptoms Other symptoms: none Review of Systems Musc: Reports: extremity pain (L foot); Denies: joint redness or joint warmth Skin/Breast: Reports: other (laceration/abrasion L foot) [facility] ED PFSH: Medical History Anxiety Cat scratch fever Depression Herpes zoster Hypertension Otitis media Psychiatric care PTSD (post-traumatic stress disorder) Sleep disorder Vitamin D deficiency Surgical History S/P appendectomy S/P times 2 S/P cholecystectomy S/P tonsillectomy and adenoidectomy Social History Smoking and tobacco status: current every day smoker cigarettes Packs smoked per day: 0.5 Years cigarettes smoked: 20 Quit status (tobacco): has tried quititng Number of times tried to quit tobacco: 1 Second hand smoke exposure: Yes Female Reproductive History: Date of last menstrual period: 05/05/21 Physical Exam Const: COMMON NORMALS: no acute distress, patient oriented x3, no limitations, healthy appearing, alert and well nourished EXAM LIMITATIONS: altered mental status Extremity: COMMON NORMALS: capillary refill normal GENERAL: Yes normal exam except as noted LEFT LOWER EXTREMITY: Yes foot & digits OTHER: pt with tenderness to dorsal mid L foot; there is a 2cm linear abrasion/healing laceration present with erythema located to wound edges only with no surrounding cellulitis or signs of active infection Neuro: COMMON NORMALS: patient oriented x3, moves all extremities, no focal motor deficits and no sensory deficits noted SENSORIUM/ORIENTATION: Yes alert Course Vital Signs: Vital signs: Vital Signs Temperature 98.3 F 05/18/22 14:17 Pulse Rate 91 05/18/22 14:17 Respiratory Rate 14 05/18/22 14:17 Blood Pressure 226/150 05/18/22 14:17 Pulse Oximetry 95 05/18/22 14:17 Oxygen Delivery Me thod 05/18/22 14:17 MDM - Extremity Injury (Lower) Medical Decision Making Prelim read XR negative. Will JULIA wrap/crutches/RICE therapy. Follow up with PCP in one week for continued pain. Discharge Plan Discharge Patient Disposition: Home Clinical Impression: Contusion of left foot Qualifiers: Encounter type: initial encounter Qualified Code(s): S90.32XA - Contusion of left foot, initial encounter Condition: Stable Prescriptions: No Action clonidine HCl 0.2 mg tablet 0.2 mg PO BEDTIME 30 Days Qty: 30 3RF paroxetine HCl 30 mg tablet 60 mg PO DAILY Qty: 60 3RF azithromycin 250 mg tablet See Rx Instructions PO .COMPLEX Qty: 6 0RF Rx Instructions: For 250 mg dose pack: take 500 mg today (day 1), then 250 mg for 4 days (days 2-5) PO ondansetron 4 mg tablet,disintegrating 4 mg PO Q8H PRN (Reason: nausea and vomiting) Qty: 20 0RF Discharge Orders: Discharge ED (Routine); Ordered 05/18/22 Ordered By: Janice Drummond Referrals: Aidan Neves MD [Primary Care Provider] - Patient Instructions: Foot Contusion (ED), RICE Therapy Coding Level of Care Code ED General Counsel for Chg Fwd Exam Expanded Problem Focused
== END 2022-05-18 15:43 | disposition home or self-care (01) ==
PROVIDERS: Emergency Provider Physician Assistant; PCP Family Medicine
DX: S90.32XA Contusion of left foot, initial encounter (principal); I10 Essential (primary) hypertension; F17.210 Nicotine dependence, cigarettes, uncomplicated; W20.8XXA Other cause of strike by thrown, projected or falling object, initial encounter
CPT/HCPCS: 73630; 99283; E0114

== ENCOUNTER → 2023-08-11 13:32 | Outpatient (BNVA) | payer MEDICAID, SELFPAY | PROVIDERS: PCP Family Medicine; Visit Provider Nurse Practitioner Family | DX: R50.9 Fever, unspecified (principal) | CPT/HCPCS: 87400; 87426 ==

== ENCOUNTER 2024-01-27 12:52 | Outpatient (CLI) | payer MEDICAID, SELFPAY ==
--- NOTE | 2024-01-27 13:09 | US_ITS ---
WS: [id number] BILATERAL 3D TOMOSYNTHESIS DIGITAL SCREENING MAMMOGRAPHY WITH CAD CLINICAL INFORMATION: N63.0 - Unspecified lump in unspecified breast HISTORY: Screening mammogram. No current complaints. COMPARISON: None. TECHNIQUE: Bilateral CC and MLO views. FINDINGS: The breasts are composed of heterogeneous fibroglandular density tissue, which can limit the detectio n of small underlying mass lesions. No suspicious abnormalities deep to the palpable marker LEFT [address] Ultrasound is pending. Unremarkable RIGHT breast. ULTRASOUND BREAST LEFT TECHNIQUE: Ultrasound left breast focused area of concern. CLINICAL INFORMATION: N63.0 - Unspecified lump in unspecified breast FINDINGS: Ultrasound LEFT breast in the area of concern. Ultrasound LEFT breast 12 o'clock position area of aneudy n. No suspicious underlying cystic or solid lesions. No parenchymal abnormalities. Findings are benig n. US/[place] breast [place] complete [id number] IMPRESSION: DENSITY:The breasts are heterogeneously dense, which may obscure small masses. BI-RADS: 2 - Benign. FOLLOW UP: Age 41 Recommend annual screening mammography age 41
--- NOTE | 2024-01-27 13:30 | MM_ITS ---
WS: [id number] BILATERAL 3D TOMOSYNTHESIS DIGITAL SCREENING MAMMOGRAPHY WITH CAD CLINICAL INFORMATION: N63.0 - Unspecified lump in unspecified breast HISTORY: Screening mammogram. No current complaints. COMPARISON: None. TECHNIQUE: Bilateral CC and MLO views. FINDINGS: The breasts are composed of heterogeneous fibroglandular density tissue, which can limit the detectio n of small underlying mass lesions. No suspicious abnormalities deep to the palpable marker LEFT [address] Ultrasound is pending. Unremarkable RIGHT breast. ULTRASOUND BREAST LEFT TECHNIQUE: Ultrasound left breast focused area of concern. CLINICAL INFORMATION: N63.0 - Unspecified lump in unspecified breast FINDINGS: Ultrasound LEFT breast in the area of concern. Ultrasound LEFT breast 12 o'clock position area of aneudy n. No suspicious underlying cystic or solid lesions. No parenchymal abnormalities. Findings are benig n. MM/[place] [id number] IMPRESSION: DENSITY:The breasts are heterogeneously dense, which may obscure small masses. BI-RADS: 2 - Benign. FOLLOW UP: Age 41 Recommend annual screening mammography age 41
== END 2024-01-27 12:53 | disposition home or self-care (01) ==
LOC: RAD 12:53
PROVIDERS: PCP Nurse Practitioner Family; Visit Provider Nurse Practitioner Family
DX: N63.24 Unspecified lump in the left breast, lower inner quadrant (principal); R92.333 Mammographic heterogeneous density, bilateral breasts
CPT/HCPCS: 76641; 77062; G0279

== ENCOUNTER → 2024-02-08 10:33 | Outpatient (BNVA) | payer MEDICAID, SELFPAY | PROVIDERS: PCP Nurse Practitioner Family; Referring Provider Nurse Practitioner Family; Visit Provider Nurse Practitioner Family | DX: Z01.89 Encounter for other specified special examinations (principal) | CPT/HCPCS: 86803; 87340; 87806 ==

== ENCOUNTER → 2024-06-26 10:05 | Outpatient (BNVA) | payer MEDICAID, SELFPAY | PROVIDERS: PCP Nurse Practitioner Family; Visit Provider Nurse Practitioner Family | DX: R50.9 Fever, unspecified (principal); I10 Essential (primary) hypertension; B34.9 Viral infection, unspecified | CPT/HCPCS: 87400; 87426 ==

== ENCOUNTER → 2024-07-24 13:00 | Outpatient (BNVA) | payer MEDICAID, SELFPAY | PROVIDERS: PCP Nurse Practitioner Family; Visit Provider Nurse Practitioner Family | DX: I10 Essential (primary) hypertension (principal); E55.9 Vitamin D deficiency, unspecified | CPT/HCPCS: 80053; 80061; 82306; 85025 ==

== ENCOUNTER 2025-02-28 09:46 | Outpatient (CLI) | payer MEDICAID, SELFPAY ==
--- NOTE | 2025-02-28 10:15 | MR_ITS ---
WS: [id number] MRI HEAD WITHOUT CONTRAST TECHNIQUE: Sagittal T1, T2 axial, T2 axial FLAIR, axial and coronal T1 images, axial susceptibility weighted imaging, axial diffusion weighted images, and coronal T2 images were obtained. CLINICAL INFORMATION: R55 - Syncope and collapse COMPARISON: CT 2020 FINDINGS: No evidence of restricted diffusion to suggest acute ischemia. Moderate patchy supratentorial white matter changes nonspecific in a patient this age but can be seen with hypertension, diabetes, collagen vascular disease, and less likely demyelinating disease. Mild white matter changes in the galen. Normal vascular flow-voids at the skull base. No extra-axial fluid collections. Mild mucosal thickening in the paranasal sinuses. Mastoid air cells are well aerated. Normal posterior nasopharynx. Ovoid focus of hemosiderin in the RIGHT frontal parietal junction measuring 5 mm. No other foci of hemosiderin. Normal optic chiasm and pituitary infundibulum. Temporal lobes and hippocampal formations are normal in appearance. MR/MR head wo con* [id number] IMPRESSION: 1. No evidence of restricted diffusion to suggest acute ischemia. 2. Moderate patchy supratentorial white matter changes nonspecific in a patien t this age but can be seen with hypertension, diabetes, collagen vascular disea se, and less likely demyelinating disease. Mild white matter changes in the milan s. 3. Mild parenchymal volume loss. 4. 5 mm ovoid focus of hemosiderin at the RIGHT frontal parietal junction nons pecific but suspicious for a small cavernoma. No evidence of recent hemorrhage. 5. No other acute findings.
== END 2025-02-28 09:47 | disposition home or self-care (01) ==
LOC: RAD 09:48
PROVIDERS: PCP Nurse Practitioner Family; Visit Provider Nurse Practitioner Family
DX: R55 Syncope and collapse (principal); G93.89 Other specified disorders of brain; J34.89 Other specified disorders of nose and nasal sinuses
CPT/HCPCS: 70551

== ENCOUNTER → 2025-03-26 11:56 | Outpatient (BNVA) | payer MEDICAID, SELFPAY | PROVIDERS: PCP Nurse Practitioner Family; Visit Provider Nurse Practitioner Family | DX: E55.9 Vitamin D deficiency, unspecified (principal); I10 Essential (primary) hypertension | CPT/HCPCS: 80053; 80061; 82306 ==